=== PATIENT | male | born 1980 | race Two or more races ===

== ENCOUNTER 2018-04-14 23:07 | Emergency (ER) | payer SELFPAY ==
[2018-04-14 23:41] VITALS: BP 127/69; PULSE 88; RESP 16; TEMP 98.7; O2SAT 95
--- NOTE | 2018-04-14 23:45 | ED PDOC ---
HPI: CCC, URI, Sore Throat Time Seen by Provider: 04/14/18 23:42 Chief Complaint (Nursing): ENT Problem Chief Complaint (Provider): Pharyngitis/Tonsilitis History Per: Patient History/Exam Limitations: no limitations Have you had recent travel within the past 21 days to any of the following countries: [place], [place], [place] or [place]?: Yes Other Location:: [facility], [facility] Onset/Duration Of Symptoms: Days (two) Current Symptoms Are (Timing): Still Present Location Of Pain: Throat Sick Contacts (Context): None Associated Symptoms: Fever, Chills, Sore Throat, Neck Pain Additional Complaint(s): Pt presents to the ED complaining of two days of throat pain; pt indicates that he experienced febrile symptoms recently on an airplane from [place]; pt denies nausea, vomiting and diarhhea; pt denies sick contacts, is swallowing all of his secretions and his neck is supple Past Medical History Vital Signs: Last Vital Signs Temp 98.7 F 04/14/18 23:39 Pulse 88 04/14/18 23:39 Resp 16 04/14/18 23:39 BP 127/69 04/14/18 23:39 Pulse Ox 95 04/14/18 23:39 - Family History Family History: States: Unknown Family Hx - Home Medications Home Medications: Ambulatory Orders Medication Instructions Recorded Amoxicillin/Clavulanate [Augmentin 1 tab PO BID #20 tab 04/15/18 875 MG-125 MG] RX: Lidocaine 2% Viscous 5 ml MM QID #100 ml 04/15/18 - Allergies Allergies/Adverse Reactions: Allergies Allergy/AdvReac Type Severity Reaction Status Date / Time No Known Allergies Allergy Verified 04/14/18 23:39 Physical Exam - Reviewed Nursing Documentation Reviewed: Yes Vital Signs Reviewed: Yes - Physical Exam Appears: Positive for: Well, Non-toxic, No Acute Distress. Negative for: Uncomfortable Head Exam: Positive for: ATRAUMATIC, NORMAL INSPECTION Skin: Positive for: Normal Color, Warm, Dry. Negative for: Diaphoresis, Pallor, Rash ENT: Positive for: Pharynx Is (TMs: (-) erythema. Pharynx: Bilateral tonsillar erythema and pharyngeal erythema; (-) exudate. (+) deviation of uvula to the right (-) tongue elevation (-) jaw or neck swelling (-) pain upon palpation of the cricoid. Airway widely patent: (-) stridor, (-) hoarseness, (-) drooling (-) trismus. ) Neck: Positive for: Normal, Painless ROM, Supple. Negative for: Decreased ROM Cardiovascular/Chest: Positive for: Regular Rate, Rhythm Respiratory: Positive for: Normal Breath Sounds Pulses-Carotid (L): 2+ Pulses-Carotid (R): 2+ Pulses-Radial (L): 2+ Pulses-Radial (R): 2+ - ECG O2 Sat by Pulse Oximetry: 95 Medical Decision Making Medical Decision Making: R/O Strep Pt is strep positive and is stable for discharge after treatming with dexameth PO and augmentin Disposition - Clinical Impression Clinical Impression: Streptococcal sore throat, Sore throat - Patient ED Disposition Is Patient to be Admitted: No Doctor Will See Patient In The: Office Counseled Patient/Family Regarding: Studies Performed, Diagnosis, Need For Followup, Rx Given - Disposition Disposition: Routine/Home Disposition Time: 00:57 Condition: STABLE Prescriptions: Amoxicillin/Clavulanate [Augmentin 875 MG-125 MG] 1 tab PO BID #20 tab RX: Lidocaine 2% Viscous 5 ml MM QID #100 ml Instructions: Sore Throat in Adults, Sore Throat, Adult (DC), Strep Throat (DC) Forms: [employer] ([place])
[2018-04-15] MEDS ORDERED: Amoxicillin-Clav 875-125 mg Tab PO STA (00:50)
[2018-04-15] MEDS ORDERED: Amoxicillin-Clav 875-125 mg Tab PO ONE (01:31)
== END 2018-04-15 01:40 | disposition home or self-care (01) ==
LOC: H.ER 23:07
DX: J02.0 Streptococcal pharyngitis (principal); J02.9 Acute pharyngitis, unspecified
CPT/HCPCS: 87430; 96372; J1100